=== PATIENT | male | born 1985 | race Caucasian/White ===

== ENCOUNTER → 2018-08-29 | Outpatient (CLI) | payer BC | LOC: LAB 15:28 | DX: L03.039 Cellulitis of unspecified toe (principal) ==

== ENCOUNTER → 2018-10-02 | Outpatient (CLI) | payer OTHER | LOC: RAD 14:14 | DX: S69.92XA Unspecified injury of left wrist, hand and finger(s), initial encounter (principal) ==

== ENCOUNTER → 2021-05-06 | Outpatient (CLI) | payer OTHER | LOC: LAB 14:39 | DX: R05.1 Acute cough (principal); Z20.822 Contact with and (suspected) exposure to COVID-19 ==

== ENCOUNTER 2023-11-01 11:40 | Emergency (ER) | payer BC ==
[~2023-11-01] VITALS: Wt 100.0 kg
[~2023-11-01 11:40] MED LIST: KETOROLAC10 MG PO
[2023-11-01 12:38] LABS: BASO # 0.05 K/mm3 (0.02-0.10); EOS # 0.17 K/mm3 (0.04-0.40); EOS % 2.1 % (0.0-4.0); HEMOGLOBIN 15.7 g/dL (13.5-18.0); LYMPH# 2.24 K/mm3 (1.50-4.00); MEAN CELL VOLUME 94 fl (78-100); MEAN CORPUSCULAR HEMOGLOBIN 31 pg (27-31); MEAN CORPUSCULAR HGB CONC 33 g/dL (33-37); MEAN PLATELET VOLUME 9.4 fl (7.4-10.4); MONO # 0.59 K/mm3 (0.20-0.80); NEU # 4.89 K/mm3 (1.40-6.50); PLATELET COUNT 223 K/mm3 (130-400); RED CELL DISTRIBUTION WIDTH 12.4 % (11.5-14.5)
[2023-11-01 12:42] LABS: ALBUMIN 4.3 g/dL (3.5-5.0); SODIUM 140 mmol/L (136-145)
[2023-11-01 12:43] LABS: CALCIUM 9.3 mg/dL (8.3-10.5)
[2023-11-01 12:44] LABS: GLUCOSE 106 mg/dL (75-110)
[2023-11-01 12:45] LABS: TOTAL PROTEIN 7.1 g/dL (6.4-8.3)
[2023-11-01 12:46] LABS: CARBON DIOXIDE 21 mmol/L (22-29); TOTAL BILIRUBIN 0.4 mg/dL (0.2-1.2)
[2023-11-01 12:50] LABS: AST-SGOT 23 U/L (5-34)
[2023-11-01 12:51] LABS: ALT/SGPT 34 U/L (0-55)
[2023-11-01 12:57] LABS: TROPONIN-I < 0.030 ng/mL (0.00-0.033)
[2023-11-01] MEDS ORDERED: Iohexol 300 - 100 ML VIAL IV ONE (13:17)
[2023-11-01 14:36] VITALS: BP 134/92
== END 2023-11-01 14:45 | disposition home or self-care (01) ==
LOC: ED 11:40
DX: H53.9 Unspecified visual disturbance (principal); R53.1 Weakness
CPT/HCPCS: Q9967